=== PATIENT | male | born 1995 | race Caucasian/White ===

== ENCOUNTER 2021-10-31 20:59 | Emergency (ER) | payer OTHER ==
[~2021-10-31] VITALS: Ht 182.8 cm; Wt 99.7 kg
--- NOTE | 2021-10-31 21:22 | ED Lower Extremity ---
General Chief Complaint: Lower Extremity Stated Complaint: KNEE PAIN History of Present Illness Date Seen by Provider: Oct 31, 2021 Time Seen by Provider: 21:18 Initial Comments 26-year-old male is brought here by EMS with complaints of left knee pain after he fell today while playing basketball. Patient felt his knee popping right before he fell. Denies sensory loss, head strike, LOC. Patient has a difficult time ambulating. Allergies and Home Medications Allergies Coded Allergies: No Known Drug Allergies (Unverified , 10/31/21) Patient Home Medication List Home Medication List Reviewed: Yes Review of Systems Constitutional: no symptoms reported EENTM: no symptoms reported Respiratory: no symptoms reported Cardiovascular: no symptoms reported Gastrointestinal: no symptoms reported Genitourinary: no symptoms reported Musculoskeletal: joint pain, joint swelling Skin: no symptoms reported Psychiatric/Neurological: No Symptoms Reported Physical Exam Vital Signs Vital Signs - First Documented 10/31/21 21:04 Temp 36.1 Pulse 98 Resp 14 B/P (MAP) 124/64 (84) Pulse Ox 97 O2 Delivery Room Air Capillary Refill : Height, Weight, BMI Height: '" Weight: lbs. oz. kg; BMI Method: General Appearance: WD/WN, no apparent distress Knees: left knee no evidence of injury, left knee bone tenderness, left knee joint effusion, left knee pain, left knee soft tissue tenderness Ankles: left ankle non-tender, left ankle normal inspection, left ankle normal range of motion Neurologic/Tendon: normal sensation, normal motor functions Neurologic/Psychiatric: alert, oriented x 3 Skin: normal color, warm/dry Progress/Results/Core Measures Results/Orders My Orders Orders - LATRICIA CHAU MD Knee 3 View Left (10/31/21 21:24) Vital Signs/I&O 10/31/21 21:04 Temp 36.1 Pulse 98 Resp 14 B/P (MAP) 124/64 (84) Pulse Ox 97 O2 Delivery Room Air Progress Progress Note : Progress Note 1. LEFT KNEE SPRAIN: - XR LEFT KNEE: no acute findings - Pt received 100mcg of Fentanyl for pain by EMS - Ice/ NSAID prn pain - Left knee brace - F/u with Ortho clinic in the next 3 days. MRI will be needed to rule out Ligament/ tendon tear. -The patient was seen in the ED, and treated appropriately to presentation at a specific point in time. Patient is informed that there is a possibility that disease and illness can evolve and change in acuity rapidly or slowly after patient is discharged from the ER. Precautionary advice given to the patient for immediate return to ER if symptoms worsen or do not resolve, and to seek emergency care sooner rather than later. Pt also advised on the importance of PCP follow up and compliance with management and follow up plan with PCP and/or specialist, as this is part of the management plan. Pt verbally expressed understanding. Departure Impression Primary Impression: Left knee sprain Qualified Codes: S83.92XA - Sprain of unspecified site of left knee, initial encounter Additional Impression: Injury while playing basketball Disposition: HOME, SELF-CARE Condition: Stable Departure-Patient Inst. Referrals: NO,LOCAL PHYSICIAN (PCP/Family) Primary Care Physician Patient Instructions: Knee Sprain (DC) Add. Discharge Instructions: - Ice/ NSAID prn pain - Left knee brace - F/u with Ortho clinic in the next 3 days. MRI will be needed to rule out Ligament/ tendon tear. -The patient was seen in the ED, and treated appropriately to presentation at a specific point in time. Patient is informed that there is a possibility that disease and illness can evolve and change in acuity rapidly or slowly after patient is discharged from the ER. Precautionary advice given to the patient for immediate return to ER if symptoms worsen or do not resolve, and to seek emergency care sooner rather than later. Pt also advised on the importance of PCP follow up and compliance with management and follow up plan with PCP and/or specialist, as this is part of the management plan. Pt verbally expressed understanding. All discharge instructions reviewed with patient and/or family. Voiced understanding. LATRICIA CHAU MD Oct 31, 2021 21:22
--- NOTE | 2021-10-31 21:48 | Diagnostic Imaging Report ---
EXAMINATION: Left knee radiographs, 3 views. COMPARISON: None. HISTORY: 26-year-old male, left knee pain. Injury. FINDINGS: There is a lucency in the region of the lateral femoral condyle in its mid aspect measuring 12 x 17 mm in size which may potentially reflect an osteochondral lesion. There is no otherwise identified potential fracture. There is no knee joint effusion. Joint spaces are well preserved. IMPRESSION: 1. Questionable osteochondral lesion along the medial aspect of the lateral femoral condyle. This may be better evaluated with dedicated nonemergent MRI of the left knee without contrast. 2. No knee joint effusion. 3. No otherwise identified potential acute osseous abnormality. Dictated by: Dictated on workstation # [id number]
[2021-10-31 22:09] VITALS: BP 124/64
== END 2021-10-31 22:20 | disposition home or self-care (01) ==
LOC: ER FS 21:10
DX: S83.92XA Sprain of unspecified site of left knee, initial encounter (principal); X50.1XXA Overexertion from prolonged static or awkward postures, initial encounter; W19.XXXA Unspecified fall, initial encounter; Y93.67 Activity, basketball
CPT/HCPCS: 73562